=== PATIENT | male | born 1955 | race Caucasian/White ===

== ENCOUNTER 2019-07-25 12:11 | Outpatient (CLI) | payer BC ==
[2019-07-25 14:44] LABS: Bacteria/HPF None Seen HPF (None Seen); Bilirubin Negative (Negative); Blood, Urine Negative (Negative); Clarity Clear (Clear); Glucose, Urine (Dipstick) Normal (Negative); Leukocyte Negative Leu/uL (Negative); Nitrite Negative (Negative); Protein, Urine (Dipstick) Negative (Neg-Trace); RBC/HPF 0-3 HPF (0-3); Squamous Epithelial None Seen HPF (0-3); Urobilinogen Normal mg/dL (Less than 2); WBC/HPF 0-3 HPF (0-3)
[2019-07-25 15:20] LABS: INR-International Normal Ratio 0.9; PTT 32.3 SEC (22.9-36.1); Prothrombin Time 12.5 SEC (12.0-14.7)
== END 2019-07-25 12:12 | disposition home or self-care (01) ==
LOC: LABBT 12:11
PROVIDERS: ATTEND Urology
DX: Z01.818 Encounter for other preprocedural examination (principal); N40.1 Benign prostatic hyperplasia with lower urinary tract symptoms; R39.14 Feeling of incomplete bladder emptying; R39.11 Hesitancy of micturition; R39.12 Poor urinary stream; R97.20 Elevated prostate specific antigen [PSA]
CPT/HCPCS: 36415; 80053; 80061; 81001; 84439; 84443; 85025; 85610; 85730; 87086; 93005; 93010

== ENCOUNTER 2019-07-31 06:29 | Day surgery (SDC) | payer BC ==
[2019-07-25 12:14] VITALS: BMI 23.1
[2019-07-31] MEDS ORDERED: Levofloxacin 500 mg/D5W 100 ml Premix Bag ONE (06:51)
[2019-07-31] MEDS ORDERED: Propofol 500 MG/50 ML VIAL ONE (08:21)
[2019-07-31] MEDS ORDERED: Fentanyl 100 MCG/2 ML VIAL ONE (08:21)
[2019-07-31] MEDS ORDERED: Oxybutynin 5 MG TAB ONE (09:58)
[2019-07-31] MEDS ORDERED: Phenazopyridine HCl 97.5 MG TABLET ONE (09:58)
[2019-07-31] MEDS ORDERED: Lidocaine 1% PF 5 ML VIAL ONE (13:06)
--- NOTE | 2019-07-31 14:19 | OP ---
DATE OF PROCEDURE: 07/31/2019 PRIMARY CARE PHYSICIAN: Dr. Cindy Gillespie. PREOPERATIVE DIAGNOSIS: A 63-year-old male with history of BPH, unable to tolerate Flomax/Rapaflo. POSTOPERATIVE DIAGNOSIS: A 63-year-old male with history of BPH, unable to tolerate Flomax/Rapaflo. PROCEDURES PERFORMED: Cystoscopy, meatal calibration and dilatation, UroLift implant x5. ANESTHESIA: TIVA. COMPLICATIONS: None apparent. DISPOSITION: To recovery room in stable condition. INDICATIONS FOR THE PROCEDURE AND HISTORY: Mr. Chi is a 63-year-old male, previously followed by Dr. Richardson with history of elevated PVR of 100 mL, BPH symptoms. He is currently on finasteride only as he has difficulty tolerating Flomax and Rapaflo due to severe nasal congestion. Moreover, he is bothered by sexual side effects and desires to transition to UroLift. Risks and complications and indications of the procedure were reviewed with him in detail including, but not limited to, bleeding, pain, infection, injury to adjacent organs, chronic pain, possible need for secondary procedure for urolithiasis, and bladder stones. All questions answered to his satisfaction and he desired to proceed. DESCRIPTION OF PROCEDURE: After an informed consent was signed, the patient was taken to the operating room, placed in a dorsal lithotomy position with the genital area prepped and draped in the usual surgical sterile fashion. We attempted to pass a 21-Bolivian cystoscope, however, there was hang up at the meatus, fossa navicularis. Therefore, we did transition to Leyla sounds and his urethral meatus was calibrated to about 16-Bolivian with ease subsequently dilated to 26-Bolivian. I was subsequently able to pass a 21-Bolivian cystoscope without significant issues and again demonstrating bilobar hyperplasia with a high median bar. Bladder was entered, which demonstrated the ureteral orifices about 3 mm from the proximal bladder neck. No bladder tumors were seen. There was trabeculation of the bladder consistent with chronic outlet obstruction. At this time, we transitioned to a UroLift implant cystoscope. Visual obturator was utilized to pass it to the level of the bladder. At this time, we performed the UroLift implant on the left side for staying away from the bladder neck at least centimeter and a half proximal to the bladder neck. The first implant was placed on the left side, we subsequently placed the contralateral on the right side. A total of 5 implants were placed, 3 on the left and 2 on the right. I did stack the implant on the left more toward the bladder neck as his bladder neck due to high median bar giving him a nice open channel visualization from the veru. He tolerated the procedure well. As he did require meatal calibration and dilatation with Leyla sounds, I will leave indwelling Swift catheter for 48 hours. He will return to clinic this Monday for catheter removal and voiding trial. Job ID: [id number]
== END 2019-07-31 11:55 | disposition home or self-care (01) ==
LOC: SDC 06:29
PROVIDERS: ATTEND Urology
PROC: 0T7D8DZ Dilation of Urethra with Intraluminal Device, Via Natural or Artificial Opening Endoscopic (ICD-10-PCS; principal; 2019-07-31)
DX: N40.0 Benign prostatic hyperplasia without lower urinary tract symptoms (principal); N32.89 Other specified disorders of bladder; Z79.82 Long term (current) use of aspirin; Z79.899 Other long term (current) drug therapy; Z91.048 Other nonmedicinal substance allergy status
CPT/HCPCS: J1956; J2001; J2704; J3010

== ENCOUNTER 2022-03-17 07:57 | Outpatient (CLI) | payer OTHER, SELFPAY | END 2022-03-17 07:58 | disposition home or self-care (01) | LOC: BICCT 07:57 | PROVIDERS: ATTEND Internal Medicine | DX: Z13.6 Encounter for screening for cardiovascular disorders (principal); E78.00 Pure hypercholesterolemia, unspecified | CPT/HCPCS: 75571 ==